=== PATIENT | male | born 1975 | race Caucasian/White ===

== ENCOUNTER 2022-01-28 10:04 | Emergency (ER) | payer OTHER ==
--- OUTSIDE RECORDS SUMMARY | 2022-01-28 10:09 | XMS REPORT | Continuity of Care Document ---
:1975 Author Organization [facility] t Address [address] [place] [address] Care Team Providers Name Role Phone Scooby NAIDU Primary Care Physician Scooby NAIDU Attending Clinician Nasrin NAIDU T Attending Clinician Lisa TENORIO Attending Clinician Unavailable Lisa TENORIO Attending Clinician Unavailable Jon Pisano DO Attending Clinician SCOOBY Attending Clinician Unavailable GATITO ROSARIO Attending Clinician Unavailable GATITO ROSARIO Attending Clinician Unavailable Doctor Unassigned, Name Attending Clinician Unavailable Payers Payer Name Policy Type Policy Number Effective Date Expiration Date S ource Problems Condition Condition Condition Status Onset Resolution Last Treating Co mments Source Name Details Category Date Date Treatment Clinician Date Depression Depression Disease Active U ashwini , , 3 ity [place] unspec[place] Medical depression depression Br anch type type Gastroesop Gastroesop Disease Active U nivers hageal hageal 2-05 ity of reflux reflux 00:00: [place] disease, disease, 00 Medica l esophagiti esophagiti Br anch s presence s presence not not specified specified Hypogonadi Hypogonadi Disease Active 2015-11 U nivers sm in male sm in male 2-05 it y of 00:00: [address] Branch Gout of Gout of Disease Active Univers multiple multiple 11-28 ity of sites sites 00:00: [address] Branch Arthritis Arthritis Disease Active 2016-0 Uni vers 11-28 ity of 00:00: [place] 00 Medical Branch Allergies, Adverse Reactions, Alerts Allergy Allergy Status Severity Reaction(s) Onset Inactive Treating Comm ents Source Name Type Date Date Clinician Codeine Propensi Active Unknown - Univ ers ty to See comments 11-28 ity of adverse 00:00: [place] reaction 00 Medical s Branch Sulfa Propensi Active Unknown - Unive rs (Sulfona ty to See comments 11-28 it y of mide adverse 00:00: [place] Antibiot reaction 00 Medica l ics) s Branch CODEINE DRUG Active Unknown-Cmnt Uni vers INGREDI 11-28 ity of 00:00: [place] 00 Medical Branch SULFA Drug Active Unknown-Cmnt Univ ers (SULFONA Class 11-28 ity of MIDE 00:00: [place] ANTIBIOT 00 Medical ICS) Branch Social History Social Habit Start Date Stop Date Quantity Comments Source Exposure to Not sure [facility] SARS-CoV-2 (event) Medica l Branch Alcohol intake 2019-10-03 2019-10-03 0 /d [facility] 00:00:00 00:00:00 Medical Branch Tobacco use and 2016-05-28 2016-05-28 Never used [facility] exposure 00:00:00 00:00:00 Medical Branch [birth year] [facility] 00:00:00 00:00:00 Medical Branch Smoking Status Start Date Stop Date Source Never smoker [facility] Medical Branch Medications Ordered Filled Start Stop Current Ordering Indication Dosage Frequency Signature Comments Components Source Medication Medication Date Date Medication? Clinician (SIG) Name Name FEBUXOSTAT 2020-11 Yes [id number] 40mg TAKE 1 Univers 40 mg 2-23 9103 TABLET BY ity of tablet 00:00: MOUTH EVERY Medical MORNING Branch FEBUXOSTAT Yes [id number] 40mg TAKE 1 U nivers 40 mg 9-24 TABLET BY ity of tablet 00:00: MOUTH EVERY Medical MORNING Branch FEBUXOSTAT 2020- No [id number] 40mg TAKE 1 Univers 40 mg 9-24 12-23 9103 TABLET BY ity of tablet 00:00: 00:00 MOUTH [place] 00 :00 EVERY Medical MORNING Branch TESTOSTERON Yes by Univer s E IM 2-23 Intramuscu ity of 15:24: lar route. [address] Branch TESTOSTERON Yes by Univer s E IM 2-23 Intramuscu ity of 15:24: lar route. [address] Branch TESTOSTERON Yes by Univer s E IM 2-23 Intramuscu ity of 15:24: lar route. [address] Branch TESTOSTERON Yes by Univer s E IM 2-23 Intramuscu ity of 15:24: [place] route. [address] Branch TESTOSTERON Yes by Univer s E IM 2-23 Intramuscu ity of 15:24: lar route. [address] Branch TESTOSTERON Yes by Univer s E IM 2-23 Intramuscu ity of 15:24: lar route. [address] Branch TESTOSTERON Yes by Univer s E IM 2-23 Intramuscu ity of 09:24: lar route. [address] Branch TESTOSTERON Yes by Univer s E IM 2-23 Intramuscu ity of 09:24: lar route. [address] Branch escitalopra Yes [id number] 10mg Take 1 Univers m oxalate 2-23 tablet by ity o f 10 mg 00:00: mouth [place] tablet 00 daily. [facility] Branch febuxostat Yes [id number] 40mg Take 1 U nivers 40 mg 2-23 tablet by ity of tablet 00:00: mouth [place] 00 every Medical morning. Branch escitalopra Yes [id number] 10mg Take 1 Univers m oxalate 2-23 tablet by ity o f 10 mg 00:00: mouth [place] tablet 00 daily. [facility] Branch febuxostat Yes [id number] 40mg Take 1 U nivers 40 mg 2-23 tablet by ity of tablet 00:00: mouth [place] 00 every Medical morning. [place] escitalopra Yes [id number] 10mg Take 1 Univers m oxalate 2-23 tablet by ity o f 10 mg 00:00: mouth [place] tablet 00 daily. [facility] febuxostat Yes [id number] 40mg Take 1 U nivers 40 mg 2-23 tablet by ity of tablet 00:00: mouth [place] 00 every Medical morning. [place] escitalopra Yes [id number] 10mg Take 1 Univers m oxalate 2-23 tablet by ity o f 10 mg 00:00: mouth [place] tablet 00 daily. [facility] febuxostat Yes [id number] 40mg Take 1 U nivers 40 mg 2-23 tablet by ity of tablet 00:00: mouth [place] 00 every Medical morning. [place] escitalopra Yes [id number] 10mg Take 1 Univers m oxalate 2-23 tablet by ity o f 10 mg 00:00: mouth [place] tablet 00 daily. [facility] febuxostat Yes [id number] 40mg Take 1 U nivers 40 mg 2-23 tablet by ity of tablet 00:00: mouth [place] 00 every Medical morning. [place] escitalopra Yes [id number] 10mg Take 1 Univers m oxalate 2-23 tablet by ity o f 10 mg 00:00: mouth [place] tablet 00 daily. [facility] escitalopra Yes [id number] 10mg Take 1 Univers m oxalate 2-23 tablet by ity o f 10 mg 00:00: mouth [place] tablet 00 daily. [facility] febuxostat Yes [id number] 40mg Take 1 U nivers 40 mg 2-23 tablet by ity of tablet 00:00: mouth [place] 00 every Medical morning. [place] escitalopra Yes [id number] 10mg Take 1 Univers m oxalate 2-23 tablet by ity o f 10 mg 00:00: mouth [place] tablet 00 daily. [facility] febuxostat 2020- No [id number] 40mg Take 1 Univers 40 mg 2-23 09-24 tablet by ity of tablet 00:00: 00:00 mouth [place] 00 :00 every Medical morning. [place] TERBINAFINE 2019- Yes [id number] 250mg TAKE 1 Univers HCL 250 mg 2-31 TABLET BY ity of tablet 00:00: MOUTH [place] 00 DAILY [facility] TERBINAFINE 2019- Yes [id number] 250mg TAKE 1 Univers HCL 250 mg 2-31 TABLET BY ity of tablet 00:00: MOUTH [place] 00 DAILY [facility] TERBINAFINE 2019- Yes [id number] 250mg TAKE 1 Univers HCL 250 mg 2-31 TABLET BY ity of tablet 00:00: MOUTH [place] 00 DAILY Medical Branch TERBINAFINE 2020-1 Yes [id number] 250mg TAKE 1 Univers HCL 250 mg 2-31 TABLET BY ity of tablet 00:00: MOUTH [place] 00 DAILY Medical Branch TERBINAFINE 2020-1 Yes [id number] 250mg TAKE 1 Univers HCL 250 mg 2-31 TABLET BY ity of tablet 00:00: MOUTH [place] 00 DAILY Medical Branch TERBINAFINE 2020- Yes [id number] 250mg TAKE 1 Univers HCL 250 mg 2-31 TABLET BY ity of tablet 00:00: MOUTH [place] 00 DAILY Medical Branch TERBINAFINE 2020- Yes [id number] 250mg TAKE 1 Univers HCL 250 mg 2-31 TABLET BY ity of tablet 00:00: MOUTH DAILY Medical Branch TERBINAFINE 2020- Yes [id number] 250mg TAKE 1 Univers HCL 250 mg 2-31 TABLET BY ity of tablet 00:00: MOUTH DAILY Medical Branch TERBINAFINE 2019- Yes [id number] 250mg TAKE 1 Univers HCL 250 mg 2-31 TABLET BY ity of tablet 00:00: MOUTH [place] 00 DAILY Medical Branch TERBINAFINE 2019- Yes [id number] 250mg TAKE 1 Univers HCL 250 mg 2-31 TABLET BY ity of tablet 00:00: MOUTH [place] 00 DAILY Medical Branch febuxostat 2019- Yes [id number] 40mg Take 1 U nivers 40 mg 1-02 tablet by ity of tablet 00:00: mouth [place] 00 every Medical morning. Branch doxycycline 2019- Yes [id number] 100mg Take 1 Univers hyclate 100 1-02 tablet by ity of mg tablet 00:00: mouth 2 (two) Medical times Branch daily. febuxostat 2019- Yes [id number] 40mg Take 1 U nivers 40 mg 1-02 tablet by ity of tablet 00:00: mouth [place] 00 every Medical morning. Branch doxycycline 2019- Yes [id number] 100mg Take 1 Univers hyclate 100 1-02 tablet by ity of mg tablet 00:00: mouth 2 [place] 00 (two) Medical times Branch daily. febuxostat 2020- Yes [id number] 40mg Take 1 U nivers 40 mg 1-02 tablet by ity of tablet 00:00: mouth [place] 00 every Medical morning. Branch doxycycline 2019- Yes [id number] 100mg Take 1 Univers hyclate 100 1-02 tablet by ity of mg tablet 00:00: mouth 2 [place] 00 (two) Medical times Branch daily. doxycycline 2020- Yes [id number] 100mg Take 1 Univers hyclate 100 1-02 tablet by ity of mg tablet 00:00: mouth 2 [place] 00 (two) Medical times Branch daily. doxycycline 2019- Yes [id number] 100mg Take 1 Univers hyclate 100 1-02 tablet by ity of mg tablet 00:00: mouth 2 [place] 00 (two) Medical times Branch daily. doxycycline 2019- Yes [id number] 100mg Take 1 Univers hyclate 100 1-02 tablet by ity of mg tablet 00:00: mouth 2 [place] 00 (two) Medical times Branch daily. doxycycline 2019- Yes [id number] 100mg Take 1 Univers hyclate 100 1-02 tablet by ity of mg tablet 00:00: mouth 2 [place] 00 (two) Medical times Branch daily. doxycycline 2019- Yes [id number] 100mg Take 1 Univers hyclate 100 1-02 tablet by ity of mg tablet 00:00: mouth 2 [place] 00 (two) Medical times Branch daily. doxycycline 2019- Yes [id number] 100mg Take 1 Univers hyclate 100 1-02 tablet by ity of mg tablet 00:00: mouth 2 [place] 00 (two) Medical times Branch daily. doxycycline 2019- Yes [id number] 100mg Take 1 Univers hyclate 100 1-02 tablet by ity of mg tablet 00:00: mouth 2 [place] 00 (two) Medical times Branch daily. doxycycline 2019- Yes [id number] 100mg Take 1 Univers hyclate 100 1-02 tablet by ity of mg tablet 00:00: mouth 2 [place] 00 (two) Medical times Branch daily. febuxostat 2019-11- No [id number] 40mg Take 1 Univers 40 mg -02 -23 tablet by ity of tablet 00:00: 00:00 mouth [place] 00 :00 every Medical morning. Branch febuxostat 2019-11- No [id number] 40mg Take 1 Univers 40 mg -02 -23 tablet by ity of tablet 00:00: 00:00 mouth [place] 00 :00 every Medical morning. Branch escitalopra 2020-0 Yes [id number] 10mg Take 1 Univers m oxalate 9-02 tablet by ity o f 10 mg 00:00: mouth [place] tablet 00 daily. Medical Branch escitalopra 2020-0 Yes [id number] 10mg Take 1 Univers m oxalate 9-02 tablet by ity o f 10 mg 00:00: mouth [place] tablet 00 daily. Medical Branch escitalopra 2020-0 Yes [id number] 10mg Take 1 Univers m oxalate 9-02 tablet by ity o f 10 mg 00:00: mouth [place] tablet 00 daily. Medical Branch escitalopra 2020-0 Yes [id number] 10mg Take 1 Univers m oxalate 9-02 tablet by ity o f 10 mg 00:00: mouth [place] tablet 00 daily. Medical Branch escitalopra 2020-0 2020- No [id number] 10mg Take 1 Univers m oxalate 9-02 -23 tablet by ity of 10 mg 00:00: 00:00 mouth [place] tablet 00 :00 daily. Medical Branch escitalopra 2019-0 2020- No [id number] 10mg Take 1 Univers m oxalate 9-02 -23 tablet by ity of 10 mg 00:00: 00:00 mouth [place] tablet 00 :00 daily. Medical Branch FEBUXOSTAT 2020-0 Yes [id number] TAKE 1 U nivers 40 mg 7-13 TABLET BY ity of tablet 00:00: MOUTH [place] 00 DAILY Medical Branch FEBUXOSTAT 2020-0 Yes [id number] TAKE 1 U nivers 40 mg 7-13 TABLET BY ity of tablet 00:00: MOUTH [place] 00 DAILY Medical Branch FEBUXOSTAT 2020-0 Yes [id number] TAKE 1 U nivers 40 mg 7-13 TABLET BY ity of tablet 00:00: MOUTH [place] 00 DAILY Medical Branch FEBUXOSTAT 2020-0 2020- No [id number] TAKE 1 Univers 40 mg 7-13 11- TABLET BY ity of tablet 00:00: 00:00 MOUTH [place] 00 :00 DAILY Medical Branch TERBINAFINE 2020-0 Yes [id number] 250mg TAKE 1 Univers HCL 250 mg 5-07 TABLET BY ity of tablet 00:00: MOUTH [place] 00 DAILY Medical Branch TERBINAFINE 2020-0 Yes [id number] 250mg TAKE 1 Univers HCL 250 mg 5-07 TABLET BY ity of tablet 00:00: MOUTH [place] 00 DAILY Medical Branch TERBINAFINE 2020-0 Yes [id number] 250mg TAKE 1 Univers HCL 250 mg 5-07 TABLET BY ity of tablet 00:00: MOUTH [place] 00 DAILY Medical Branch TERBINAFINE 2020-0 Yes [id number] 250mg TAKE 1 Univers HCL 250 mg 5-07 TABLET BY ity of tablet 00:00: MOUTH [place] 00 DAILY Medical Branch TERBINAFINE 2020-0 Yes [id number] 250mg TAKE 1 Univers HCL 250 mg 5-07 TABLET BY ity of tablet 00:00: MOUTH 00 DAILY Medical Branch TERBINAFINE 2020-0 2020- No [id number] 250mg TAKE 1 Univers HCL 250 mg 5-07 12-31 TABLET BY ity of tablet 00:00: 00:00 MOUTH [place] 00 :00 DAILY Medical Branch DOXYCYCLINE 2020-0 Yes [id number] TAKE 1 Univers HYCLATE 100 4-24 TABLET BY ity of mg tablet 00:00: MOUTH 00 TWICE Medical DAILY Branch DOXYCYCLINE 2020-0 Yes [id number] TAKE 1 Univers HYCLATE 100 4-24 TABLET BY ity of mg tablet 00:00: MOUTH 00 TWICE Medical DAILY Branch DOXYCYCLINE 2020-0 Yes [id number] TAKE 1 Univers HYCLATE 100 4-24 TABLET BY ity of mg tablet 00:00: MOUTH 00 TWICE Medical DAILY Branch DOXYCYCLINE 2020-0 Yes [id number] TAKE 1 Univers HYCLATE 100 4-24 TABLET BY ity of mg tablet 00:00: MOUTH 00 TWICE Medical DAILY Branch DOXYCYCLINE 2020-0 Yes [id number] TAKE 1 Univers HYCLATE 100 4-24 TABLET BY ity of mg tablet 00:00: MOUTH 00 TWICE Medical DAILY Branch DOXYCYCLINE 2020-0 2020- No [id number] TAKE 1 Univers HYCLATE 100 4-24 11-02 TABLET BY it y of mg tablet 00:00: 00:00 MOUTH [place] 00 :00 TWICE Medical DAILY Branch ULORIC 40 2020-0 Yes [id number] TAKE 1 Un doni mg tablet 4-10 TABLET BY ity o f 00:00: MOUTH 00 DAILY Medical Branch ULORIC 40 2020-0 Yes [id number] TAKE 1 Un doni mg tablet 4-10 TABLET BY ity o f 00:00: MOUTH 00 DAILY Medical Branch ULORIC 40 2020-0 Yes [id number] TAKE 1 Un doni mg tablet 4-10 TABLET BY ity o f 00:00: MOUTH 00 DAILY Medical Branch ULORIC 40 2020-0 2020- No [id number] TAKE 1 U nivers mg tablet 4-10 07-13 TABLET BY ity of 00:00: 00:00 MOUTH [place] 00 :00 DAILY Medical Branch testosteron 2019- No 300mg Univ ers e cypionate 12-28 ity of (DEPO-TESTO 15:00: 14:09 [place] STERONE) 00 :00 Medical injection Branch 300 mg testosteron 2019- No 300mg 300 mg, U nivers e cypionate 12-28 Intramuscu i ty of (DEPO-TESTO 15:00: 14:09 lar, ONCE, [place] STERONE) 00 :00 1 dose, Medical injection [place] Branch 300 mg 12/28/19 at 0900, Routine testosteron 2019- No 300mg Univ ers e cypionate 12-28 ity of (DEPO-TESTO 15:00: 14:09 [place] STERONE) 00 :00 Medical injection Branch 300 mg testosteron 2019- No 300mg 300 mg, U nivers e cypionate 12-28 Intramuscu i ty of (DEPO-TESTO 15:00: 14:09 lar, ONCE, [place] STERONE) 00 :00 1 dose, Medical injection [place] Branch 300 mg 12/28/19 at 0900, Routine doxycycline Yes [id number] 100mg Take 1 Univers hyclate 100 2-27 tablet by ity of mg tablet 00:00: mouth 2 [place] 00 (two) Medical times Branch daily. doxycycline 2019-0 Yes [id number] 100mg Take 1 Univers hyclate 100 2-27 tablet by ity of mg tablet 00:00: mouth 2 [place] 00 (two) Medical times Branch daily. doxycycline 2019- Yes [id number] 100mg Take 1 Univers hyclate 100 2-27 tablet by ity of mg tablet 00:00: mouth 2 [place] 00 (two) Medical times Branch daily. doxycycline 2020-0 Yes [id number] 100mg Take 1 Univers hyclate 100 2-27 tablet by ity of mg tablet 00:00: mouth 2 [place] 00 (two) Medical times Branch daily. doxycycline 2019-0 2020- No [id number] 100mg Take 1 Univers hyclate 100 2-27 04-24 tablet by it y of mg tablet 00:00: 00:00 mouth 2 [place] :[place] (two) Medical times Branch daily. testosteron 2020-0 2020- No 300mg Univ ers e cypionate 2-01 31- ity of (DEPO-TESTO 15:00: 14:01 [place] STERONE) 00 :00 Medical injection Branch 300 mg testosteron 2020-0 2020- No 300mg 300 mg, U nivers e cypionate 2-01 31- Intramuscu i ty of (DEPO-TESTO 15:00: 14:01 lar, ONCE, [place] STERONE) 00 :00 1 dose, Medical injection 12/05/19 Bran ch 300 mg at 0900, Routine testosteron 2020-0 2020- No 300mg Univ ers e cypionate 2-01 31- ity of (DEPO-TESTO 15:00: 14:01 [place] STERONE) 00 :00 Medical injection Branch 300 mg testosteron 2020-0 2020- No 300mg 300 mg, U nivers e cypionate 2-01 31- Intramuscu i ty of (DEPO-TESTO 15:00: 14:01 lar, ONCE, [place] STERONE) 00 :00 1 dose, Medical injection 12/05/19 Bran ch 300 mg at 0900, Routine escitalopra 2019-0 Yes [id number] 10mg Take 1 Univers m oxalate 2-04 tablet by ity o f 10 mg 00:00: mouth [place] tablet 00 daily. Medical Branch terbinafine 2019-0 Yes [id number] 250mg Take 1 Univers HCl 250 mg 2-04 tablet by ity of tablet 00:00: mouth [place] 00 daily. Medical Branch escitalopra 2019-0 Yes [id number] 10mg Take 1 Univers m oxalate 2-04 tablet by ity o f 10 mg 00:00: mouth [place] tablet 00 daily. Medical Branch terbinafine 2020-0 Yes [id number] 250mg Take 1 Univers HCl 250 mg 2-04 tablet by ity of tablet 00:00: mouth [place] 00 daily. Medical Branch escitalopra 2020-0 Yes [id number] 10mg Take 1 Univers m oxalate 2-04 tablet by ity o f 10 mg 00:00: mouth [place] tablet 00 daily. Medical Branch terbinafine 2019-0 Yes [id number] 250mg Take 1 Univers HCl 250 mg 2-04 tablet by ity of tablet 00:00: mouth [place] 00 daily. Medical Branch escitalopra 2020-0 Yes [id number] 10mg Take 1 Univers m oxalate 2-04 tablet by ity o f 10 mg 00:00: mouth [place] tablet 00 daily. Medical Branch terbinafine 2020-0 Yes [id number] 250mg Take 1 Univers HCl 250 mg 2-04 tablet by ity of tablet 00:00: mouth [place] 00 daily. Medical Branch escitalopra 2020-0 Yes [id number] 10mg Take 1 Univers m oxalate 2-04 tablet by ity o f 10 mg 00:00: mouth [place] tablet 00 daily. [facility] Branch terbinafine 2020-0 Yes [id number] 250mg Take 1 Univers HCl 250 mg 2-04 tablet by ity of tablet 00:00: mouth [place] 00 daily. [facility] Branch escitalopra 2020-0 Yes [id number] 10mg Take 1 Univers m oxalate 2-04 tablet by ity o f 10 mg 00:00: mouth [place] tablet 00 daily. [facility] Branch terbinafine 2020-0 Yes [id number] 250mg Take 1 Univers HCl 250 mg 2-04 tablet by ity of tablet 00:00: mouth [place] 00 daily. [facility] Branch escitalopra 2019-0 Yes [id number] 10mg Take 1 Univers m oxalate 2-04 tablet by ity o f 10 mg 00:00: mouth [place] tablet 00 daily. [facility] Branch terbinafine 2020-0 Yes [id number] 250mg Take 1 Univers HCl 250 mg 2-04 tablet by ity of tablet 00:00: mouth [place] 00 daily. Medical Branch escitalopra 2020-0 Yes [id number] 10mg Take 1 Univers m oxalate 2-04 tablet by ity o f 10 mg 00:00: mouth [place] tablet 00 daily. Medical Branch escitalopra 2020-0 Yes [id number] 10mg Take 1 Univers m oxalate 2-04 tablet by ity o f 10 mg 00:00: mouth [place] tablet 00 daily. [facility] Branch escitalopra 2020-0 Yes [id number] 10mg Take 1 Univers m oxalate 2-04 tablet by ity o f 10 mg 00:00: mouth [place] tablet 00 daily. [facility] Branch escitalopra 2020-0 2020- No [id number] 10mg Take 1 Univers m oxalate 2-04 09-02 tablet by ity of 10 mg 00:00: 00:00 mouth [place] tablet 00 :00 daily. [facility] terbinafine 2019-0 2020- No [id number] 250mg Take 1 Univers HCl 250 mg 2- 05-07 tablet by ity of tablet 00:00: 00:00 mouth [place] 00 :00 daily. Medical Branch ESCITALOPRA 2019-0 Yes [id number] 10mg TAKE 1 Univers M OXALATE 24 TABLET BY ity o f 10 mg 00:00: MOUTH [place] tablet 00 DAILY Medical Branch ESCITALOPRA 2019-0 2020- No [id number] 10mg TAKE 1 Univers M OXALATE 11-24- TABLET BY ity of 10 mg 00:00: 00:00 MOUTH [place] tablet 00 :00 DAILY Medical Branch ESCITALOPRA 2019-0 2020- No [id number] 10mg TAKE 1 Univers M OXALATE 11-24 TABLET BY ity of 10 mg 00:00: 00:00 MOUTH [place] tablet 00 :00 DAILY Medical Branch FEBUXOSTAT 2020-0 Yes [id number] 40mg TAKE 1 U nivers 40 mg 1-22 TABLET BY ity of tablet 00:00: [facility] 00 DAILY Medical Branch FEBUXOSTAT 2020-0 Yes [id number] 40mg TAKE 1 U nivers 40 mg 1-22 TABLET BY ity of tablet 00:00: MOUTH [place] 00 DAILY Medical Branch FEBUXOSTAT 2020-0 Yes [id number] 40mg TAKE 1 U nivers 40 mg 1-22 TABLET BY ity of tablet 00:00: MOUTH [place] 00 DAILY Medical Branch FEBUXOSTAT 2020-0 Yes [id number] 40mg TAKE 1 U nivers 40 mg 1-22 TABLET BY ity of tablet 00:00: [facility] 00 DAILY Medical Branch FEBUXOSTAT 2020-0 Yes [id number] 40mg TAKE 1 U nivers 40 mg 1-22 TABLET BY ity of tablet 00:00: [facility] 00 DAILY Medical Branch FEBUXOSTAT 2020-0 Yes [id number] 40mg TAKE 1 U nivers 40 mg 1-22 TABLET BY ity of tablet 00:00: [facility] 00 DAILY Medical Branch FEBUXOSTAT 2020-0 Yes [id number] 40mg TAKE 1 U nivers 40 mg 1-22 TABLET BY ity of tablet 00:00: MOUTH [place] 00 DAILY Medical Branch FEBUXOSTAT 2020-0 2020- No [id number] 40mg TAKE 1 Univers 40 mg 1-22 04-10 TABLET BY ity of tablet 00:00: 00:00 MOUTH [place] 00 :00 DAILY Medical Branch doxycycline Yes [id number] 100mg Take 1 Univers 100 mg 9-24 tablet by ity of tablet 00:00: mouth 2 [place] 00 (two) Medical times Branch daily. doxycycline Yes [id number] 100mg Take 1 Univers 100 mg 9-24 tablet by ity of tablet 00:00: mouth 2 [place] 00 (two) Medical times Branch daily. doxycycline Yes [id number] 100mg Take 1 Univers 100 mg 9-24 tablet by ity of tablet 00:00: mouth 2 [place] 00 (two) Medical times Branch daily. doxycycline Yes [id number] 100mg Take 1 Univers 100 mg 9-24 tablet by ity of tablet 00:00: mouth 2 [place] 00 (two) Medical times Branch daily. doxycycline 2019- No [id number] 100mg Take 1 Univers 100 mg 9-24 02-27 tablet by ity of tablet 00:00: 00:00 mouth 2 [place] 00 :00 (two) Medical times Branch daily. doxycycline 2019- No [id number] 100mg Take 1 Univers 100 mg 9-24 02-27 tablet by ity of tablet 00:00: 00:00 mouth 2 [place] 00 :00 (two) Medical times Branch daily. testosteron 2018- No 300mg Univ ers e cypionate 06-26 ity of (DEPO-TESTO 14:00: 20:44 [place] STERONE) 00 :00 Medical injection Branch 300 mg testosteron 2018- No 300mg 300 mg, U nivers e cypionate 06-26 Intramuscu i ty of (DEPO-TESTO 14:00: 20:44 lar, ONCE, [place] STERONE) 00 :00 1 dose, Medical injection Mon Branch 300 mg 06/26/19 at 0900, Routine testosteron 2019- No 300mg Univ ers e cypionate 06-26 ity of (DEPO-TESTO 14:00: 20:44 [place] STERONE) 00 :00 Medical injection Branch 300 mg testosteron 2018- No 300mg 300 mg, U nivers e cypionate 06-26 Intramuscu i ty of (DEPO-TESTO 14:00: 20:44 lar, ONCE, [place] STERONE) 00 :00 1 dose, Medical injection Mon Branch 300 mg 06/26/19 at 0900, Routine febuxostat Yes [id number] 40mg Take 1 U nivers 40 mg 7-22 tablet by ity of tablet 00:00: mouth [place] 00 daily. Medical Branch escitalopra Yes [id number] 10mg Take 1 Univers m oxalate 7-22 tablet by ity o f 10 mg 00:00: mouth [place] tablet 00 daily. Medical Branch doxycycline Yes [id number] 100mg Take 1 Univers 100 mg 7-22 tablet by ity of tablet 00:00: mouth 2 [place] 00 (two) Medical times Branch daily. escitalopra Yes [id number] 10mg Take 1 Univers m oxalate 7-22 tablet by ity o f 10 mg 00:00: mouth [place] tablet 00 daily. Medical Branch febuxostat Yes [id number] 40mg Take 1 U nivers 40 mg 7-22 tablet by ity of tablet 00:00: mouth [place] 00 daily. Medical Branch escitalopra Yes [id number] 10mg Take 1 Univers m oxalate 7-22 tablet by ity o f 10 mg 00:00: mouth [place] tablet 00 daily. Medical Branch doxycycline Yes [id number] 100mg Take 1 Univers 100 mg 7-22 tablet by ity of tablet 00:00: mouth 2 [place] 00 (two) Medical times Branch daily. febuxostat Yes [id number] 40mg Take 1 U nivers 40 mg 7-22 tablet by ity of tablet 00:00: mouth [place] 00 daily. Medical Branch escitalopra Yes [id number] 10mg Take 1 Univers m oxalate 7-22 tablet by ity o f 10 mg 00:00: mouth [place] tablet 00 daily. Medical Branch doxycycline Yes [id number] 100mg Take 1 Univers 100 mg 7-22 tablet by ity of tablet 00:00: mouth 2 [place] 00 (two) Medical times Branch daily. febuxostat Yes [id number] 40mg Take 1 U nivers 40 mg 7-22 tablet by ity of tablet 00:00: mouth [place] 00 daily. Medical Branch escitalopra Yes [id number] 10mg Take 1 Univers m oxalate 7-22 tablet by ity o f 10 mg 00:00: mouth [place] tablet 00 daily. Medical Branch doxycycline Yes [id number] 100mg Take 1 Univers 100 mg 7-22 tablet by ity of tablet 00:00: mouth 2 [place] 00 (two) Medical times Branch daily. febuxostat Yes [id number] 40mg Take 1 U nivers 40 mg 7-22 tablet by ity of tablet 00:00: mouth [place] 00 daily. Medical Branch escitalopra Yes [id number] 10mg Take 1 Univers m oxalate 7-22 tablet by ity o f 10 mg 00:00: mouth [place] tablet 00 daily. Medical Branch doxycycline Yes [id number] 100mg Take 1 Univers 100 mg 7-22 tablet by ity of tablet 00:00: mouth 2 [place] 00 (two) Medical times Branch daily. escitalopra 2020- No [id number] 10mg Take 1 Univers m oxalate 7-22 -24 tablet by ity of 10 mg 00:00: 00:00 mouth [place] tablet 00 :00 daily. Medical Branch febuxostat 2020- No [id number] 40mg Take 1 Univers 40 mg 7-22 -22 tablet by ity of tablet 00:00: 00:00 mouth [place] 00 :00 daily. [facility] TESTOSTERON Yes by Univer s E IM 6-18 Intramuscu ity of 12:33: lar route. [address] TESTOSTERON Yes by Univer s E IM 6-18 Intramuscu ity of 12:33: lar route. [address] TESTOSTERON Yes by Univer s E IM 6-18 Intramuscu ity of 12:33: lar route. [address] TESTOSTERON Yes by Univer s E IM 6-18 Intramuscu ity of 12:33: lar route. [address] TESTOSTERON Yes by Univer s E IM 6-18 Intramuscu ity of 12:33: lar route. [address] TESTOSTERON Yes by Univer s E IM 6-18 Intramuscu ity of 12:33: lar route. [address] TESTOSTERON Yes by Univer s E IM 6-18 Intramuscu ity of 12:33: lar route. [address] Branch TESTOSTERON Yes by Univer s E IM 6-18 Intramuscu ity of 12:33: lar route. [address] Branch TESTOSTERON Yes by Univer s E IM 6-18 Intramuscu ity of 12:33: lar route. [address] TESTOSTERON Yes by Univer s E IM 6-18 Intramuscu ity of 12:33: lar route. [address] Branch TESTOSTERON Yes by Univer s E IM 6-18 Intramuscu ity of 12:33: lar route. [address] Branch TESTOSTERON Yes by Univer s E IM 6-18 Intramuscu ity of 12:33: lar route. [address] TESTOSTERON Yes by Univer s E IM 6-18 Intramuscu ity of 12:33: lar route. [address] TESTOSTERON Yes by Univer s E IM 6-18 Intramuscu ity of 12:33: lar route. [address] TESTOSTERON Yes by Univer s E IM 6-18 Intramuscu ity of 12:33: lar route. [address] TESTOSTERON Yes by Univer s E IM 6-18 Intramuscu ity of 12:33: lar route. [address] TESTOSTERON Yes by Univer s E IM 6-18 Intramuscu ity of 12:33: lar route. [address] TESTOSTERON Yes by Univer s E IM 6-18 Intramuscu ity of 12:33: lar route. [address] Branch TESTOSTERON Yes by Univer s E IM 6-18 Intramuscu ity of 12:33: lar route. [address] TESTOSTERON Yes by Univer s E IM 6-18 Intramuscu ity of 12:33: lar route. [address] TESTOSTERON Yes by Univer s E IM 6-18 Intramuscu ity of 12:33: lar route. [address] TESTOSTERON Yes by Univer s E IM 6-18 Intramuscu ity of 12:33: lar route. [place] 16 Medical Branch pramoxine-h Yes Insert Univ ers ydrocortiso 6-04 into ity of ne 1-1 % 00:00: rectum 2 [place] rectal 00 (two) Medical cream times Branch daily. pramoxine-h Yes Insert Univ ers ydrocortiso 6-04 into ity of ne 1-1 % 00:00: rectum 2 [place] rectal 00 (two) Medical cream times Branch daily. pramoxine-h Yes Insert Univ ers ydrocortiso 6-04 into ity of ne 1-1 % 00:00: rectum 2 [place] rectal 00 (two) Medical cream times Branch daily. pramoxine-h Yes Insert Univ ers ydrocortiso 6-04 into ity of ne 1-1 % 00:00: rectum 2 [place] rectal 00 (two) Medical cream times Branch daily. pramoxine-h Yes Insert Univ ers ydrocortiso 6-04 into ity of ne 1-1 % 00:00: rectum 2 [place] rectal 00 (two) Medical cream times Branch daily. hydrocortis Yes [id number] 1{appli Insert 1 Univers one-pramovi 5-20 cator} Applicator ity of ne rectal 00:00: into [place] foam 00 rectum 2 Medical (two) Branch times daily. hydrocortis Yes [id number] 1{appli Insert 1 Univers one-pramovi 5-20 cator} Applicator ity of ne rectal 00:00: into [place] foam 00 rectum 2 Medical (two) Branch times daily. hydrocortis Yes [id number] 1{appli Insert 1 Univers one-pramovi 5-20 cator} Applicator ity of ne rectal 00:00: into [place] foam 00 rectum 2 Medical (two) Branch times daily. hydrocortis Yes [id number] 1{appli Insert 1 Univers one-pramovi 5-20 cator} Applicator ity of ne rectal 00:00: into [place] foam 00 rectum 2 Medical (two) Branch times daily. hydrocortis Yes [id number] 1{appli Insert 1 Univers one-pramovi 5-20 cator} Applicator ity of ne rectal 00:00: into [place] foam 00 rectum 2 Medical (two) Branch times daily. OMEPRAZOLE 2019-0 Yes TAKE 1 Unive rs 40 mg 3-25 CAPSULE BY ity of capsule 00:00: [facility] DAILY Medical Branch OMEPRAZOLE 2019-0 Yes TAKE 1 Unive rs 40 mg 3-25 CAPSULE BY ity of capsule 00:00: [facility] DAILY Medical Branch OMEPRAZOLE 2018-0 Yes TAKE 1 Unive rs 40 mg 3-25 CAPSULE BY ity of capsule 00:00: [facility] DAILY Medical Branch OMEPRAZOLE 2019-0 Yes TAKE 1 Unive rs 40 mg 3-25 CAPSULE BY ity of capsule 00:00: [facility] DAILY Medical Branch OMEPRAZOLE 2018- Yes TAKE 1 Unive rs 40 mg 3-25 CAPSULE BY ity of capsule 00:00: [facility] DAILY Medical Branch OMEPRAZOLE 2018-0 Yes TAKE 1 Unive rs 40 mg 3-25 CAPSULE BY ity of capsule 00:00: [facility] DAILY Medical Branch OMEPRAZOLE 2018-0 Yes TAKE 1 Unive rs 40 mg 3-25 CAPSULE BY ity of capsule 00:00: [facility] DAILY Medical Branch OMEPRAZOLE 2018-0 Yes TAKE 1 Unive rs 40 mg 3-25 CAPSULE BY ity of capsule 00:00: [facility] DAILY Medical Branch OMEPRAZOLE 2018-0 Yes TAKE 1 Unive rs 40 mg 3-25 CAPSULE BY ity of capsule 00:00: [facility] DAILY Medical Branch OMEPRAZOLE 2018-0 Yes TAKE 1 Unive rs 40 mg 3-25 CAPSULE BY ity of capsule 00:00: [facility] DAILY Medical Branch OMEPRAZOLE 2019-0 Yes TAKE 1 Unive rs 40 mg 3-25 CAPSULE BY ity of capsule 00:00: [facility] DAILY Medical Branch OMEPRAZOLE 2019-0 Yes TAKE 1 Unive rs 40 mg 3-25 CAPSULE BY ity of capsule 00:00: [facility] DAILY Medical Branch OMEPRAZOLE 2019-0 Yes TAKE 1 Unive rs 40 mg 3-25 CAPSULE BY ity of capsule 00:00: [facility] DAILY Medical Branch OMEPRAZOLE 2019-0 Yes TAKE 1 Unive rs 40 mg 3-25 CAPSULE BY ity of capsule 00:00: [facility] DAILY Medical Branch OMEPRAZOLE 2019-0 Yes TAKE 1 Unive rs 40 mg 3-25 CAPSULE BY ity of capsule 00:00: [facility] DAILY Medical Branch OMEPRAZOLE 2019-0 Yes TAKE 1 Unive rs 40 mg 3-25 CAPSULE BY ity of capsule 00:00: MOUTH [place] DAILY Medical Branch OMEPRAZOLE 2019-0 Yes TAKE 1 Unive rs 40 mg 3-25 CAPSULE BY ity of capsule 00:00: MOUTH [place] DAILY Medical Branch OMEPRAZOLE 2019-0 Yes TAKE 1 Unive rs 40 mg 3-25 CAPSULE BY ity of capsule 00:00: MOUTH DAILY Medical Branch OMEPRAZOLE 2019-0 Yes TAKE 1 Unive rs 40 mg 3-25 CAPSULE BY ity of capsule 00:00: MOUTH [place] DAILY Medical Branch OMEPRAZOLE 2019-0 Yes TAKE 1 Unive rs 40 mg 3-25 CAPSULE BY ity of capsule 00:00: MOUTH [place] DAILY Medical Branch OMEPRAZOLE 2019-0 Yes TAKE 1 Unive rs 40 mg 3-25 CAPSULE BY ity of capsule 00:00: MOUTH [place] DAILY Medical Branch OMEPRAZOLE 2019-0 Yes TAKE 1 Unive rs 40 mg 3-25 CAPSULE BY ity of capsule 00:00: [facility] DAILY Medical Branch OMEPRAZOLE 2019-0 Yes TAKE 1 Unive rs 40 mg 3-25 CAPSULE BY ity of capsule 00:00: MOUTH [place] DAILY Medical Branch OMEPRAZOLE 2019-0 Yes TAKE 1 Unive rs 40 mg 3-25 CAPSULE BY ity of capsule 00:00: MOUTH [place] DAILY Medical Branch OMEPRAZOLE 2019-0 Yes TAKE 1 Unive rs 40 mg 3-25 CAPSULE BY ity of capsule 00:00: [facility] DAILY Medical Branch OMEPRAZOLE 2019-0 Yes TAKE 1 Unive rs 40 mg 3-25 CAPSULE BY ity of capsule 00:00: [facility] DAILY Medical Branch OMEPRAZOLE 2019-0 Yes TAKE 1 Unive rs 40 mg 3-25 CAPSULE BY ity of capsule 00:00: [facility] DAILY Medical Branch OMEPRAZOLE 2019-0 Yes TAKE 1 Unive rs 40 mg 3-25 CAPSULE BY ity of capsule 00:00: MOUTH [place] DAILY Medical Branch OMEPRAZOLE 2019-0 Yes TAKE 1 Unive rs 40 mg 3-25 CAPSULE BY ity of capsule 00:00: [facility] DAILY Medical Branch OMEPRAZOLE 2019-0 Yes TAKE 1 Unive rs 40 mg 3-25 CAPSULE BY ity of capsule 00:00: MOUTH [place] DAILY Medical Branch mupirocin 2 2017- Yes [id number] Apply to Univers % ointment 9-10 area(s) 3 ity of 00:00: (three) [place] 00 times Medical daily. Branch mupirocin 2 2018-0 Yes [id number] Apply to Univers % ointment 9-10 area(s) 3 ity of 00:00: (three) [place] 00 times Medical daily. Branch mupirocin 2 2018-0 Yes [id number] Apply to Univers % ointment 9-10 area(s) 3 ity of 00:00: (three) [place] 00 times Medical daily. Branch mupirocin 2 2018-0 Yes [id number] Apply to Univers % ointment 9-10 area(s) 3 ity of 00:00: (three) [place] 00 times Medical daily. Branch mupirocin 2 2018-0 Yes [id number] Apply to Univers % ointment 9-10 area(s) 3 ity of 00:00: (three) [place] 00 times Medical daily. Branch Immunizations Ordered Filled Immunization Date Status Comments [facility] e Immunization Name Name Influenza Virus 2019-08-31 Completed Universit y of Vaccine Quad .5 mL 00:00:00 [facility] 6+ MO Branch Tdap 2019-08-31 Completed University of 00:00:00 [facility] Influenza Virus 2019-08-31 Completed Universit y of Vaccine Quad .5 mL 00:00:00 [facility] 6+ MO Branch Tdap 2019-08-31 Completed University of 00:00:00 [facility] Influenza Virus 2019-08-31 Completed Universit y of Vaccine Quad .5 mL 00:00:00 [facility] 6+ MO Branch Tdap 2019-08-31 Completed University of 00:00:00 [facility] Influenza Virus 2019-08-31 Completed Universit y of Vaccine Quad .5 mL 00:00:00 [facility] 6+ MO Branch Tdap 2019-08-31 Completed University of 00:00:00 [facility] Influenza Virus 2019-08-31 Completed Universit y of Vaccine Quad .5 mL 00:00:00 [facility] 6+ MO Branch Tdap 2019-08-31 Completed University of 00:00:00 [facility] Influenza Virus 2019-08-31 Completed Universit y of Vaccine Quad .5 mL 00:00:00 [facility] 6+ MO Ona Tdap 2019-08-31 Completed University of 00:00:00 [facility] Influenza Virus 2019-08-31 Completed Universit y of Vaccine Quad .5 mL 00:00:00 [place] [facility] IM 6+ MO Branch Tdap 2019-08-31 Completed University of 00:00:00 [facility] Influenza Virus 2019-08-31 Completed Universit y of Vaccine Quad .5 mL 00:00:00 [place] [facility] IM 6+ MO Branch Tdap 2019-08-31 Completed University of 00:00:00 [facility] Influenza Virus 2019-08-31 Completed Universit y of Vaccine Quad .5 mL 00:00:00 [place] [facility] IM 6+ MO Branch Tdap 2019-08-31 Completed University of 00:00:00 [facility] Influenza Virus 2019-08-31 Completed Universit y of Vaccine Quad .5 mL 00:00:00 [place] [facility] 6+ MO Branch Tdap 2019-08-31 Completed University of 00:00:00 [facility] Influenza Virus 2019-08-31 Completed Universit y of Vaccine Quad .5 mL 00:00:00 [place] [facility] 6+ MO Branch TDAP 2019-08-31 Completed University of 00:00:00 [facility] Influenza Virus 2019-08-31 Completed Universit y of Vaccine Quad .5 mL 00:00:00 [place] [facility] 6+ MO Branch TDAP 2019-08-31 Completed University of 00:00:00 [facility] Influenza Virus 2019-08-31 Completed Universit y of Vaccine Quad .5 mL 00:00:00 [place] [facility] 6+ MO Branch TDAP 2019-08-31 Completed University of 00:00:00 [facility] Influenza Virus 2019-08-31 Completed Universit y of Vaccine Quad .5 mL 00:00:00 [place] [facility] 6+ MO Branch TDAP 2019-08-31 Completed University of 00:00:00 [facility] Influenza Virus 2019-08-31 Completed Universit y of Vaccine Quad .5 mL 00:00:00 [place] [facility] 6+ MO Branch TDAP 2019-08-31 Completed University of 00:00:00 [facility] Influenza Virus 2019-08-31 Completed Universit y of Vaccine Quad .5 mL 00:00:00 [place] [facility] IM 6+ MO Branch TDAP 2019-08-31 Completed University of 00:00:00 [facility] Influenza Virus 2019-08-31 Completed Universit y of Vaccine Quad .5 mL 00:00:00 [place] [facility] 6+ MO Branch TDAP 2019-08-31 Completed University of 00:00:00 [facility] Influenza Virus 2019-08-31 Completed Universit y of Vaccine Quad .5 mL 00:00:00 [place] [facility] IM 6+ MO Branch TDAP 2019-08-31 Completed University of 00:00:00 [facility] Influenza Virus 2019-08-31 Completed Universit y of Vaccine Quad .5 mL 00:00:00 [place] [facility] IM 6+ MO Branch TDAP 2019-08-31 Completed University of 00:00:00 [facility] Influenza Virus 2019-08-31 Completed Universit y of Vaccine Quad .5 mL 00:00:00 [place] [facility] IM 6+ MO Branch TDAP 2019-08-31 Completed University of 00:00:00 [facility] Influenza Virus 2019-08-31 Completed Universit y of Vaccine Quad .5 mL 00:00:00 [facility] 6+ MO Branch TDAP 2019-08-31 Completed University of 00:00:00 [facility] Influenza Virus 2019-08-31 Completed Universit y of Vaccine Quad .5 mL 00:00:00 [facility] 6+ MO Branch TDAP 2019-08-31 Completed University of 00:00:00 [facility] Influenza Virus 2019-08-31 Completed Universit y of Vaccine Quad .5 mL 00:00:00 [facility] 6+ MO Branch TDAP 2019-08-31 Completed University of 00:00:00 [facility] Influenza Virus 2019-08-31 Completed Universit y of Vaccine Quad .5 mL 00:00:00 [facility] 6+ MO Branch TDAP 2019-08-31 Completed University of 00:00:00 [facility] Vital Signs Vital Name Observation Time Observation Value Comments Source Systolic blood 2020-12-24 15:18:00 130 mm[Hg] Univer sity of pressure [facility] Diastolic blood 2020-12-24 15:18:00 80 mm[Hg] Unive rsity of pressure [facility] Body weight 2020-12-24 15:18:00 115.667 kg [facility] BMI 2020-12-24 15:18:00 36.59 kg/m2 [facility] Systolic blood 2019-12-28 13:33:00 118 mm[Hg] Univer sity of pressure [facility] Diastolic blood 2019-12-28 13:33:00 80 mm[Hg] Unive rsity of pressure [place] [facility] Body weight 2019-12-28 13:33:00 122.471 kg Universi ty of [place] [facility] BMI 2019-12-28 13:33:00 38.74 kg/m2 Universi ty of [place] [facility] Systolic blood 2019-12-05 13:28:00 120 mm[Hg] Univer sity of pressure [place] [facility] Diastolic blood 2019-12-05 13:28:00 80 mm[Hg] Unive rsity of pressure [place] [facility] Body weight 2019-12-05 13:28:00 121.11 kg Universi ty of [place] [facility] BMI 2019-12-05 13:28:00 38.31 kg/m2 Universi ty of [facility] Branch Systolic blood 2019-06-26 12:49:00 120 mm[Hg] Univer sity of pressure [place] [facility] Diastolic blood 2019-06-26 12:49:00 80 mm[Hg] Unive rsity of pressure [place] [facility] Body weight 2019-06-26 12:49:00 110.678 kg Universi ty of [place] [facility] BMI 2019-06-26 12:49:00 36.03 kg/m2 Universi ty of [facility] Branch Systolic blood 2019-06-14 18:15:00 115 mm[Hg] Univer sity of pressure [facility] Branch Diastolic blood 2019-06-14 18:15:00 75 mm[Hg] Unive rsity of [facility] Branch Heart rate 2019-06-14 18:15:00 82 /min Universi ty of [facility] Branch Respiratory rate 2019-06-14 18:15:00 19 /min Univ ersity of [facility] Body height 2019-06-14 18:15:00 175.3 cm Universi ty of [place] [facility] Body weight 2019-06-14 18:15:00 107.956 kg Universi ty of [place] [facility] BMI 2019-06-14 18:15:00 35.15 kg/m2 Universi ty of [facility] Branch Oxygen saturation in 2019-06-14 18:15:00 97 /min [facility] blood by [facility] Pulse oximetry Branch Procedures Procedure Date / Time Performing Clinician Source Performed DME/SUPPLY JUSTIFICATION 2019-06-14 05:01:00 Doctor Unassigned, No [facility] PATIENT QUESTIONNAIRE 2019-03-20 05:01:00 Doctor Unassigned, No [facility] Encounters Start End Encounter Admission Attending Care Care Encounter Source Date/Time Date/Time Type Type Clinicians Facility Department ID 2021-10-23 2021-10-23 Amy Almodovar [facility] 1.2.840.114 [id number] Univers 00:00:00 00:00:00 [facility] [id number] it y of [place] [id number] Maximiliano as PROFESSIO [phone] [facility] 044 [facility] ONE 2021-07-25 2021-07-25 Amy Almodovar [facility] [id number] Univers 00:00:00 00:00:00 [facility] [id number] it y of [place] [id number] Maximiliano as Professio [phone] [facility] 044 [facility] 2021-06-25 2021-06-25 Office Nasrin [facility] [id number] Univers 16:00:00 16:20:00 Visit Dannie Vann [id number] ity [facility] [id number] [phone] [facility] 085 [facility] 2021-06-25 2021-06-25 Outpatient DANNIE TENORIO [facility] [id number] Univers 16:00:00 16:00:00 DANNIE TENORIO [id number] ity [facility] [place] [facility] 2021-06-25 2021-06-25 Outpatient R DANNIE TENORIO [facility] [id number] Univers 16:00:00 16:00:00 DANNIE TENORIO ity [facility] [place] [facility] 2021-01-16 2021-01-16 Patient Norris [facility] [id number] Univers 00:00:00 00:00:00 Outreach Jose PRIMARY [id number] [facility] [id number] [place] [phone] [address] 2020-12-31 2020-12-31 Outpatient R SCOOBY [facility] [id number] Univers 10:15:00 10:15:00 YADI stephanie [facility] [place] [facility] 2020-12-31 2020-12-31 Outpatient R SCOOBY, [facility] [id number] Univers 10:15:00 10:15:00 YADI [id number] ity [facility] [place] [facility] 2020-12-24 2020-12-24 Outpatient Carter ALMODOVAR [facility] [id number] Univers 09:15:00 09:15:00 YADI [id number] ity [facility] [place] [facility] 2020-12-24 2020-12-24 Outpatient Carter ALMODOVAR, [facility] [id number] Univers 09:15:00 09:15:00 YADI [facility] 2020-12-24 2020-12-24 [facility] [id number] Univers 07:13:03 07:28:[address] [facility] [id number] it y of [place] [id number] Maximiliano as Professio [phone] [address] One 2020-11-30 2020-11-30 [facility]ogesh [facility] [id number] Univers 00:00:00 00:00:00 [facility] [id number] it y of [place] [id number] Maximiliano as Professio [phone] [address] One 2020-10-31 2020-10-31 [facility] [id number] Univers 00:00:00 00:00:00 [facility] [id number] it y of [place] [id number] Maximiliano as Professio [phone] [address] One 2020-09-02 2020-09-02 [facility] [id number] Univers 00:00:00 00:00:00 [facility] [id number] it y of [place] [id number] Maximiliano as Professio [phone] Me dic[address] 2020-07-03 2020-07-03 [facility]esh [facility] [id number] Univers 00:00:00 00:00:00 [facility] [id number] it y of [place] [id number] Maximiliano as Professio [phone] [address] 2020-06-19 2020-06-19 Outpatient R DANNIE TENORIO [facility] [id number] Univers 16:30:00 16:30:00 DEDRADANNIE CASTILLO ity [facility] [place] [facility] 2020-06-19 2020-06-19 Telemedici [facility] [id number] Univers 08:09:53 08:39:53 ne [facility] T [place] [id number] ity [place] [id number] [place] Profess[place] [phone] [address] 2020-05-13 2020-05-13 [facility] 1.2.840.114 [id number] Univers 00:00:00 00:00:00 [facility] [id number] it y of [place] [id number] Maximiliano as Professio [phone] [address] 2020-05-03 2020-05-03 Outpatient GIOVANNY OLIVAS [facility] [id number] Univers 10:00:00 10:00:00 GIOVANNY ROSARIO [id number] ity [facility] [place] [facility] 2020-05-03 2020-05-03 Outpatient GIOVANNY OLIVAS [facility] [id number] Univers 10:00:00 10:00:00 GIOVANNY ROSARIO [facility] 2020-03-07 2020-03-07 Amy Almodovar [facility] [id number] Univers 00:00:00 00:00:00 [facility] [id number] it y of [place] [id number] Maximiliano as Professio [phone] [address] 2020-02-23 2020-02-23 [facility]esh [facility] 1.2.840.114 [id number] Univers 00:00:00 00:00:00 [facility] [id number] [place] [id number] Maximiliano as Professio [phone] [address] 2020-02-09 2020-02-09 Refyogesh Almodovar [facility] 1.2.840.114 [id number] Univers 00:00:00 00:00:00 [facility] [id number] [place] [id number] [place]iano as Professio [phone] [address] 2020-01-30 2020-01-30 Outpatient Carter ALMODOVAR [facility] [id number] Univers 07:30:00 07:30:[address] 2020-01-30 2020-01-30 Outpatient [facility] [id number] Univers 07:30:00 07:30:00 [facility] 2020-01-30 2020-01-30 Telemedici [facility] 1.2.840.114 [id number] Univers 07:04:08 07:19:08 ne Visit Yadi Vann [id number] ity [place] [id number] [phone] [address] 2019-12-28 2019-12-28 Office [facility] 1.2.840.114 [id number] Univers 07:33:34 08:04:53 Visit Yadi [facility] [id number] [place] [id number] [place] as Professio [phone] [address] 2019-12-28 2019-12-28 Outpatient Carter ALMODOVAR [facility] [id number] Univers 07:30:00 07:30:00 [facility] 2019-12-05 2019-12-05 Office [facility] [id number] Univers 07:27:49 07:42:49 Visit Yadi Child [id number] it y of [place] [id number] Maximiliano as Professio [phone] [place] dic[address] Office Building One 2019-11-24 2019-11-24 Amy Almodovar [facility] [id number] Univers 00:00:00 00:00:00 [facility] [id number] it y of [place] [id number] Maximiliano as Professio [phone] [address] Office Building One 2019-11-22 2019-11-22 Amy Almodovar [facility] [id number] Univers 00:00:00 00:00:00 Yadi Child [id number] it y of [place] [id number] Maximiliano as Professio [phone] [address] One 2019-10-20 2019-10-20 Outpatient Carter ALMODOVAR [facility] [id number] Univers 08:10:00 08:42:07 YADI lino [facility] [place] [facility] 2019-10-03 2019-10-03 Outpatient Carter ALMODOVAR [facility] [id number] Univers 07:15:00 09:42:41 YADI lino [facility] [place] [facility] 2019-08-29 2019-08-29 Outpatient Carter ALMODOVAR [facility] [id number] Univers 07:15:00 08:02:27 YADI lino [facility] 2019-07-25 2019-07-25 Outpatient Carter [facility] [id number] Univers 07:15:00 08:11:45 YADI lino [facility] 2019-06-26 2019-06-26 Office Scooby [facility] [id number] Univers 07:31:28 08:14:11 Visit Yadi Child [id number] it y of [place] [id number] Maximiliano as Professio [phone] [address] Office [facility] [employer] 2019-06-26 2019-06-26 Outpatient Carter [facility] [id number] Univers 07:15:00 08:14:11 YADI lino of [facility] 2019-06-14 2019-06-14 Office Gigianahieleazar [facility] [id number] Univers 12:58:10 13:30:44 Visit Dannie Vann [id number] [id number] [phone] [place] [id number] [facility] 2019-06-14 2019-06-14 Orders Doctor LITO [id number] Univers 00:00:00 00:00:00 Only Unassigned, MILA [id number] ity of [facility] [id number] Maximiliano as [phone] [place] [address] [place] 2019-03-20 2019-03-20 Orders Doctor LITO [id number] Univers 00:00:00 00:00:00 Only Unassigned, MILA [id number] ity of [facility] [id number] Maximiliano as [phone] [address] Results This patient has no known results.
[2022-01-28 10:31] LABS: Absolute Lymphocytes (CBC) 2.7 K/uL (0.7-4.9); Hematocrit 42.9 % (39.6-49.0); Lymphocytes % 32.1 % (15.3-44.8); MPV 6.9 fL (7.6-11.3); RBC Red Blood Cell Count 5.47 M/uL (4.33-5.43)
[2022-01-28] MEDS ORDERED: ASPIRIN 81 MG CHEWABLE TABLET ONE (10:39)
[2022-01-28 10:50] LABS: Potassium 3.9 mmol/L (3.5-5.1); Troponin High Sensitivity 48.7 pg/mL (<58.9)
--- NOTE | 2022-01-28 11:20 | RAD REPORT ---
EXAM DESCRIPTION: RAD - Chest Single View - 01/28/2022 11:08 am CLINICAL HISTORY: CHEST PAIN COMPARISON: No comparisons FINDINGS: Lines: None. Lungs: No evidence of edema or pneumonia. Pleural: No significant pleural effusions or pneumothorax. Cardiac: The heart size is within normal limits. Bones: No acute fractures. Other: IMPRESSION: No acute cardiopulmonary disease.
--- NOTE | 2022-01-28 11:25 | ER ---
Nurse's Notes [facility] Name: Pedro Layton Age: 46 yrs Sex: Male : 1975 Arrival Date: 01/28/2022 Time: 10:06 Bed 19 Private MD: Diagnosis: Chest pain, unspecified Presentation: 01/28 10:07 Chief complaint: EMS states: Pt walked to clinic at work with concerns about his ear ss lobe trembling. After further questioning, patient stated that he has had chest tightness that began at 0700 this am. Coronavirus screen: Client denies travel out of the [place] in the last 14 days. Ebola Screen: Patient denies exposure to infectious person. Patient denies travel to an Ebola-affected area in the 21 days before illness onset. Initial Sepsis Screen: Does the patient meet any 2 criteria? No. Patient's initial sepsis screen is negative. Does the patient have a suspected source of infection? No. Patient's initial sepsis screen is negative. Risk Assessment: Do you want to hurt yourself or someone else? Patient reports no desire to harm self or others. Onset of symptoms was January 28, 2022. 10:07 Method Of Arrival: EMS: [facility] ss 10:07 Acuity: TAYO 3 ss 10:18 Care prior to arrival: Medication(s) given: ASA, 81 mg, x 2, IV initiated. 20 GA, in ss the left antecubital area. Historical: - Allergies: 10:08 Codeine; ss 10:08 Sulfa (Sulfonamide Antibiotics); ss - Home Meds: 11:08 Uloric oral [Active]; Lexapro Oral [Active]; ph - PMHx: 11:08 Gout; Depressive disorder; ph - PSHx: 11:08 hernia repair; Vasectomy; ph - Immunization history:: Client reports receiving the 2nd dose of the Covid vaccine. - Social history:: Smoking status: Patient denies any tobacco usage or history of. Screenin:06 Abuse screen: Denies threats or abuse. Denies injuries from another. Nutritional ph screening: No deficits noted. Tuberculosis screening: No symptoms or risk factors identified. Fall Risk None identified. Assessment: 10:14 General: Appears in no apparent distress. comfortable, well groomed, Behavior is calm, ph cooperative, appropriate for age, Denies fever, feeling ill. Pain: Complains of pain in anterior aspect of left upper chest Pain radiates to left arm. Neuro: Level of Consciousness is awake, alert, obeys commands, Oriented to person, place, time, situation. Cardiovascular: Reports chest pain, fatigue, shortness of breath, Denies lightheadedness, nausea, vomiting, Capillary refill < 3 seconds in bilateral fingers Patient's skin is warm and dry. Rhythm is regular Chest pain is described as mild, quality is squeezing, is located in left anterior chest wall radiates to left arm(s). Respiratory: Airway is patent Respiratory effort is even, unlabored, Respiratory pattern is regular, symmetrical. GI: No signs and/or symptoms were reported involving the gastrointestinal system. Derm: Skin is intact, is healthy with good turgor, Skin is pink, warm \T\ dry. Musculoskeletal: Circulation, motion, and sensation intact. Range of motion: intact in all extremities. 11:07 Reassessment: Patient appears in no apparent distress at this time. Patient and/or ph family updated on plan of care and expected duration. Pain level reassessed. Patient is alert, oriented x 3, equal unlabored respirations, skin warm/dry/pink. Vital Signs: 10:07 Pulse 79; Resp 16; ss 10:13 BP 165 / 109; Pulse 81; Resp 18; Temp 98.0; Pulse Ox 98% on R/A; Weight 121.56 kg; ph Height 5 ft. 10 in. (177.80 cm); Pain 2/10; 11:07 BP 136 / 64; Pulse 68; Resp 16; Pulse Ox 98% on R/A; ph 11:56 BP 130 / 74; Pulse 68; Resp 16; Temp 97.9; Pulse Ox 99% on R/A; ph 10:13 Body Mass Index 38.45 (121.56 kg, 177.80 cm) ph Vitals: 11:07 Cardiac Rhythm Assessment Sinus rhythm. ED Course: 10:06 Patient arrived in ED. kb 10:06 Mild[facility]clain [facility]-C [facility]. kb 10:06 Ganesh Walsh DO is Attending Physician. kb 10:06 Ani Sheldon, HARRIS is Primary Nurse. ph 10:06 Patient has correct armband on for positive identification. Bed in low position. Call ph light in reach. Side rails up X 1. secured entrance monitor on. Pulse ox on. NIBP on. Door closed. Noise minimized. 10:08 Triage completed. ss 10:08 Arm band placed on right wrist. ss 10:20 Maintain EMS IV. Dressing intact. Good blood return noted. Site clean \T\ dry. Gauge \T\ ph site: 20 LAC. IV is patent, is intact, with fluids infusing freely, with good blood return, Flushed right antecubital with 5 ml normal saline. 11:10 XRAY Chest (1 view) In Process Unspecified. EDMS 12:05 No provider procedures requiring assistance completed. IV discontinued, intact, ph bleeding controlled, No redness/swelling at site. Pressure dressing applied. Administered Medications: 10:35 Drug: Aspirin Chewable Tablet 162 mg Route: PO; ph 11:05 Follow up: Response: No adverse reaction ph 11:06 Follow up: Response: No adverse reaction ph Outcome: 11:25 Discharge ordered by . kb 12:05 Discharged to home ambulatory. ph 12:05 Condition: good 12:05 Discharge instructions given to patient, Instructed on discharge instructions, follow up and referral plans. Demonstrated understanding of instructions, follow-up care. 12:07 Patient left the ED. ph Signatures: Dispatcher [employer] EDMildred Bear, JAMAL BAUMAN-Pilar Bhardwaj, HARRIS RN Ani Callahan RN RN ph
--- NOTE | 2022-01-28 11:25 | EDPHYS ---
Physician Documentation [facility] Name: Pedro Layton Age: 46 yrs Sex: Male : 1975 Arrival Date: 01/28/2022 Time: 10:06 Bed 19 Private MD: ED Physician Ganesh Walsh HPI: 01/28 10:59 This 46 yrs old Male presents to ER via EMS with complaints of Chest Pain > 30 y/o. kb 10:59 The patient or guardian reports chest pain that is located primarily in the anterior kb chest wall, left. Onset: this morning, at 07:00. The pain does not radiate. Associated signs and symptoms: The patient has no apparent associated signs or symptoms. The chest pain is described as a pressure. Duration: The patient or guardian reports a single episode, that is still ongoing. Modifying factors: The symptoms are alleviated by nothing. the symptoms are aggravated by nothing. Severity of pain: At its worst the pain was mild in the emergency department the pain is unchanged. The patient has not experienced similar symptoms in the past. The patient has not recently seen a physician. Historical: - Allergies: 10:08 Codeine; ss 10:08 Sulfa (Sulfonamide Antibiotics); ss - Home Meds: 11:08 Uloric oral [Active]; Lexapro Oral [Active]; ph - PMHx: 11:08 Gout; Depressive disorder; ph - PSHx: 11:08 hernia repair; Vasectomy; ph - Immunization history:: Client reports receiving the 2nd dose of the Covid vaccine. - Social history:: Smoking status: Patient denies any tobacco usage or history of. ROS: 10:58 Constitutional: Negative for fever, chills, and weight loss. kb 10:58 Cardiovascular: Positive for chest pain, Negative for edema, orthopnea, palpitations, paroxysmal nocturnal dyspnea. 10:58 All other systems are negative. Exam: 10:58 Constitutional: This is a well developed, well nourished patient who is awake, alert, kb and in no acute distress. Head/Face: Normocephalic, atraumatic. ENT: Moist Mucous membranes Cardiovascular: Regular rate and rhythm with a normal S1 and S2. No gallops, murmurs, or rubs. No pulse deficits. Respiratory: Respirations even and unlabored. No increased work of breathing. Talking in full sentences Skin: Warm, dry with normal turgor. Normal color. MS/ Extremity: Pulses equal, no cyanosis. Neurovascular intact. Full, normal range of motion. Neuro: Awake and alert, GCS 15, oriented to person, place, time, and situation. Moves all extremities. Normal gait. Psych: Awake, alert, with orientation to person, place and time. Behavior, mood, and affect are within normal limits. Vital Signs: 10:07 Pulse 79; Resp 16; ss 10:13 BP 165 / 109; Pulse 81; Resp 18; Temp 98.0; Pulse Ox 98% on R/A; Weight 121.56 kg; ph Height 5 ft. 10 in. (177.80 cm); Pain 2/10; 11:07 BP 136 / 64; Pulse 68; Resp 16; Pulse Ox 98% on R/A; ph 11:56 BP 130 / 74; Pulse 68; Resp 16; Temp 97.9; Pulse Ox 99% on R/A; ph 10:13 Body Mass Index 38.45 (121.56 kg, 177.80 cm) ph MDM: 10:06 Patient medically screened. 10:58 HEART Score: History: Slightly Suspicious (0), ECG: Normal (0), Age: > 45 and < 65 kb years (1), Risk Factors: 1 or 2 risk factors (1), [+ Family HX] Troponin: < or = 1 x Normal Limit (0), Total Score = 2. The patient was given aspirin in the Emergency Department. Data reviewed: vital signs, nurses notes. Data interpreted: Pulse oximetry: on room air is 98 %. Interpretation: normal. 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 10:59 Data reviewed: I have discussed the patient's presentation/case with the attending Emergency Department Physician; and as a result, I will discharge patient. 01/28 10:07 Order name: Basic Metabolic Panel; Complete Time: 10:53 kb 01/28 10:07 Order name: CBC with Diff; Complete Time: 10:35 kb 01/28 10:07 Order name: Troponin HS; Complete Time: 10:53 kb 01/28 10:07 Order name: XRAY Chest (1 view); Complete Time: 11:24 kb 01/28 10:07 Order name: EKG; Complete Time: 10:08 kb 01/28 10:07 Order name: Cardiac monitoring; Complete Time: 10:15 kb 01/28 10:07 Order name: EKG - Nurse/Tech; Complete Time: 10:16 kb 01/28 10:07 Order name: IV Saline Lock; Complete Time: 10:15 kb 01/28 10:07 Order name: Labs collected and sent; Complete Time: 10:15 kb 01/28 10:07 Order name: O2 Per Protocol; Complete Time: 10:15 kb 01/28 10:07 Order name: O2 Sat Monitoring; Complete Time: 10:15 kb Administered Medications: 10:35 Drug: Aspirin Chewable Tablet 162 mg Route: PO; ph 11:05 Follow up: Response: No adverse reaction ph 11:06 Follow up: Response: No adverse reaction ph Disposition: 14:52 Co-signature as Attending Physician, Gaensh UNDERWOOD was immediately available on-site ms3 in the Emergency Department for consultation in the care of the patient.. Disposition Summary: 01/28/22 11:25 Discharge Ordered Location: Home kb Condition: Stable kb Diagnosis - Chest pain, unspecified kb Followup: kb - With: Emergency Department - When: As needed - Reason: Worsening of condition Followup: kb - With: Private Physician - When: 2 - 3 days - Reason: Recheck today's complaints, Continuance of care, Re-evaluation by your physician Discharge Instructions: - Discharge Summary Sheet kb - Nonspecific Chest Pain, Adult, [id number] kb Forms: - Medication Reconciliation Form kb - Thank You Letter kb - Antibiotic Education kb - Prescription Opioid Use kb - Work release form ph Signatures: Dispatcher [employer] Mildred Orantes FNP-C FNP-Ckb Smirch, Shelby, RN RN Ani Callahan RN RN Ganesh Mcknight DO DO ms3
[2022-01-28 12:22] VITALS: BP 130/74; TEMP 97.9; O2SAT 99
--- NOTE | 2022-02-02 11:30 | EKG ---
Test Date: 2022-01-28 Test Time: 10:18:44 Office Copy Selector: ELIAS MEASUREMENT RESULTS: Intervals: Rate: 70 DE: 126 QRSD: 98 QT: 376 QTc: 406 [place]: P: 52 DE: 126 QRS: 46 T: -36 INTERPRETIVE STATEMENTS: Normal sinus rhythm T wave abnormality, consider inferior ischemia Abnormal ECG No previous ECG available for comparison Electronically Signed On 02-02-22 11:14:51 CDT by Gianluca Dowling
== END 2022-01-28 12:07 | disposition home or self-care (01) ==
LOC: ER 10:04
DX: R07.9 Chest pain, unspecified (principal); F32.A Depression, unspecified; Z88.2 Allergy status to sulfonamides; Z88.5 Allergy status to narcotic agent
CPT/HCPCS: 36415; 71045; 80048; 84484; 85025; 93005; 99284